=== PATIENT | male | born 1985 | race Caucasian/White ===

== ENCOUNTER 2022-04-03 19:26 | Emergency (ER) | payer MEDICAID, BC ==
[~2022-04-03] VITALS: Ht 172.7 cm; Wt 104.5 kg
[2022-04-03 20:54] LABS: BASOPHILS # (AUTO) 0.1 X10'3 (0-0.2); BASOPHILS % (AUTO) 0.4 % (0-1); EOSINOPHILS # (AUTO) 0.1 X10'3 (0-0.9); EOSINOPHILS % (AUTO) 0.7 % (0-6); HEMATOCRIT 39.2 % (42.0-52.0); HEMOGLOBIN 13.2 g/dl (14.0-17.9); LYMPHOCYTES # (AUTO) 2.3 X10'3 (1.1-4.8); LYMPHOCYTES % (AUTO) 10.6 % (21-51); MEAN CORPUSCULAR HEMOGLOBIN 29.6 PG (27.0-31.0); MEAN CORPUSCULAR HGB CONC 33.5 g/dL (33.0-36.5); MEAN CORPUSCULAR VOLUME 88.3 FL (78-98); MEAN PLATELET VOLUME 8.4 FL (7.4-10.4); MONOCYTES # (AUTO) 1.7 X10'3 (0-0.9); MONOCYTES % (AUTO) 7.7 % (2-12); NEUTROPHILS # (AUTO) 17.5 X10'3 (1.8-7.7); NEUTROPHILS % (AUTO) 80.6 % (42-75); PLATELET COUNT 317 X10'3 (140-440); RED BLOOD COUNT 4.44 X10'6 (4.70-6.10); RED CELL DISTRIBUTION WIDTH 13.9 % (11.5-14.5); WHITE BLOOD COUNT 21.7 X10'3 (4.5-11.0)
[2022-04-03 21:08] LABS: ALANINE AMINOTRANSFERASE 25 U/L (12-78); ALBUMIN/GLOBULIN RATIO 0.6 (1.1-1.5); ALKALINE PHOSPHATASE 119 IU/L (46-116); ANION GAP 7 (8-16); ASPARTATE AMINO TRANSFERASE 12 U/L (10-37); BILIRUBIN,TOTAL 0.4 MG/DL (0.1-1.0); BLOOD UREA NITROGEN 9 MG/DL (7-18); CALCIUM 8.7 MG/DL (8.5-10.1); CHLORIDE 101 MMOL/L (99-107); GLUCOSE 103 MG/DL (70-104); POTASSIUM 4.2 MMOL/L (3.5-5.1); SODIUM 135 MMOL/L (135-145); TOTAL CARBON DIOXIDE 27.5 MMOL/L (24-32); TOTAL PROTEIN 7.9 G/DL (6.4-8.2); eGFR 84 ML/MIN
[2022-04-03] MEDS ORDERED: DOXYCYCLINE 100MG CAPSULE PO STA (22:36)
[2022-04-03] MEDS ORDERED: rifampin 300mg capsule PO ONE (22:40)
[2022-04-03] MEDS ORDERED: rifampin 300mg capsule PO SCH (22:40)
[2022-04-03] MEDS ORDERED: vancomycin/NS 1 GM ADD-VANTAGE 250 ML IV ONE (22:40)
[2022-04-04] MEDS ORDERED: DOXY-135 PO (00:22)
[2022-04-04] MEDS ORDERED: RIFA150C7 CORPAK (00:22)
[2022-04-04 01:11] VITALS: BP 132/80
[2022-04-04] MEDS ORDERED: NAPR-56 PO (01:13)
[2022-04-04] MEDS ORDERED: naproxen 500mg tablet PO ONE (01:15)
--- NOTE | 2022-04-04 23:17 | NUR ---
PT CALLED AND STATED HE HAS LOST HIS PRESCRIPTIONS FROM HIS VISIT YESTERDAY. PT WAS SEEN BY DR JORDAN. PER DR JORDAN, OK TO CALL IN PRESCRIPTIONS TO THE PHARMACY OF PT'S CHOICE. PRESCRIPTIONS CALLED FOR NAPROXEN 500 MG EVERY 12 HOURS #20, DOXYCYCLINE 100 MG EVERY 12 HOURS X 10 DAYS #20
== END 2022-04-04 01:54 | disposition home or self-care (01) ==
LOC: ER 19:27
DX: L03.115 Cellulitis of right lower limb (principal); D72.829 Elevated white blood cell count, unspecified; Z88.8 Allergy status to other drugs, medicaments and biological substances
CPT/HCPCS: 36415; 80053; 83605; 84145; 85025; 85651; 87040; 96365; 96366; 99284; J3370; J7030; 96374